=== PATIENT | male | born 1985 | race Caucasian/White ===

== ENCOUNTER 2022-08-24 00:27 | Emergency (ER) | payer SELFPAY ==
[~2022-08-24] VITALS: Ht 167.6 cm; Wt 108.9 kg
[2022-08-24 00:27] VITALS: BP 100/47
[2022-08-24] MEDS ORDERED: ONDANSETRON 4 MG/2 ML VIAL IVP ONE (00:30)
[2022-08-24] MEDS ORDERED: NACL 0.9% 1,000 ML IV ONE (00:30)
[2022-08-24 03:23] VITALS: BP 100/47
== END 2022-08-24 03:25 | disposition home or self-care (01) ==
LOC: MED 00:27
DX: F10.129 Alcohol abuse with intoxication, unspecified (principal); R11.2 Nausea with vomiting, unspecified; T40.715A Adverse effect of cannabis, initial encounter; F12.90 Cannabis use, unspecified, uncomplicated; Y90.9 Presence of alcohol in blood, level not specified; Y92.89 Other specified places as the place of occurrence of the external cause
CPT/HCPCS: 96361; 96374; 99283; J2405; J7030